=== PATIENT | male | born 1975 | race African-American/Black ===

== ENCOUNTER 2019-11-15 19:47 | Inpatient (IN) ==
[2019-11-15] MEDS ORDERED: ENOXAPARIN 80 MG/0.8 ML SYRINGE SUBCUT ONE (22:30)
[2019-11-15] MEDS ORDERED: AZITHROMYCIN INJ 500 MG in SODIUM CHLORIDE 0.9% 250 ML IV SCH (22:30)
[2019-11-15 23:16] LABS: Calcium 8.7 MG/DL (8.5-10.1)
[2019-11-15] MEDS ORDERED: NICOTINE 21 MG/24 HR PATCH TRANSDERM PRN (23:27)
[2019-11-15] MEDS ORDERED: MORPHINE 4 MG/1 ML VIAL IV PRN (23:27)
[2019-11-15] MEDS ORDERED: GLUCAGON 1 MG VIAL IM PRN (23:27)
[2019-11-15] MEDS ORDERED: ONDANSETRON 4 MG/2 ML VIAL IV PRN (23:27)
[2019-11-15] MEDS ORDERED: ZALEPLON 5 MG CAPSULE PO PRN (23:27)
[2019-11-15] MEDS ORDERED: DOCUSATE SODIUM 100 MG CAPSULE PO PRN (23:27)
[2019-11-15] MEDS ORDERED: DEXTROSE 50% 25 GM/50 ML VIAL IV PRN (23:27)
[2019-11-15 23:38] LABS: Basophils % 0.1 % (0.0-0.8); Eosinophils # 0.1 10*3/uL (0.0-0.87); Eosinophils % 1.5 % (0.00-10.9); Hematocrit 37.7 VOL% (42.0-52.0); Hemoglobin 12.2 GM/DL (14.0-18.0); Immature Granulocytes % 1.7 %; Immature Granulocytes Absolute 0.12 #; Lymphocytes # 0.8 10*3/uL (1.4-4.0); Mean Corpuscular HGB Conc 32.4 GM/DL (32-36); Mean Corpuscular Volume 85.5 FL (87-102); Mean Platelet Volume 9.7 FL (9.6-12.0); Monocytes % 5.1 % (1.7-12.7); Neutrophils % 80.6 % (38.7-73.9); Platelet Count 231 T/CUMM (130-400); Red Blood Count 4.41 MC/CUMM (3.8-5.5); Red Cell Distribution Width 13.2 % (9.3-17.3); White Blood Count 7.2 T/CUMM (4-12)
[2019-11-16] MEDS: cefTRIAXone 1,000 MG in SYRINGE 1 EACH IV SCH (00:06)
[2019-11-16] MEDS: diphenhydrAMINE CAP 25 MG CAPSULE PO PRN ×2 (00:07→20:30)
[2019-11-16] MEDS: POTASSIUM CHLORIDE 20 MEQ TABLET PO PRN ×5 (00:07→10:20)
[2019-11-16] MEDS: guaiFENesin/DM ER 600-30 MG TABLET PO PRN ×2 (00:07→20:30)
[2019-11-16] MEDS: ACETAMINOPHEN 325 MG TABLET PO PRN ×3 (00:07→20:30)
[2019-11-16 05:36] LABS: Basophils % 0.3 % (0.0-0.8); Eosinophils # 0.2 10*3/uL (0.0-0.87); Hematocrit 37.9 VOL% (42.0-52.0); Hemoglobin 12.4 GM/DL (14.0-18.0); Immature Granulocytes % 1.8 %; Immature Granulocytes Absolute 0.13 #; Lymphocytes # 0.7 10*3/uL (1.4-4.0); Lymphocytes % 9.2 % (21.2-54.2); Mean Corpuscular HGB Conc 32.7 GM/DL (32-36); Mean Corpuscular Volume 83.7 FL (87-102); Mean Platelet Volume 10.1 FL (9.6-12.0); Monocytes % 4.6 % (1.7-12.7); Neutrophils % 81.1 % (38.7-73.9); Platelet Count 229 T/CUMM (130-400); Red Blood Count 4.53 MC/CUMM (3.8-5.5); Red Cell Distribution Width 13.3 % (9.3-17.3); White Blood Count 7.4 T/CUMM (4-12)
[2019-11-16] MEDS ORDERED: POTASSIUM CHLORIDE 20 MEQ TABLET PO ONE (05:40)
[2019-11-16 06:04] LABS: Eosinophils 3 % (0-10); Hypochromasia 1+; Lymphocytes 7 % (20-55); Platelet Estimate Adequate; Segmented Neutrophils 89 % (50-85); Total Cells Counted 100
[2019-11-16] MEDS: hydrALAZINE 20 MG/1 ML VIAL IV PRN ×2 (06:06→08:05)
[2019-11-16 06:23] LABS: Calcium 8.7 MG/DL (8.5-10.1); Osmolality,Calculated 271.8 MOS/KG (273-304); Thyroid Stimulating Hormone 3.03 uIU/ml (0.358-3.74)
[2019-11-16] MEDS: POTASSIUM CHLORIDE INJ 40 MEQ in SODIUM CHLORIDE 0.45% 1,000 ML IV SCH ×2 (06:28→16:08)
[2019-11-16] MEDS: LEVOTHYROXINE 75 MCG TABLET PO SCH (06:28)
[2019-11-16 06:45] LABS: Ferritin 584.1 ng/ml (26-388)
[2019-11-16] MEDS: CITALOPRAM 20 MG TABLET PO SCH (08:02)
[2019-11-16] MEDS: AZITHROMYCIN 250 MG TABLET PO SCH (08:04)
[2019-11-16] MEDS: OLANZapine 5 MG TABLET PO SCH (08:04)
[2019-11-16] MEDS: CHOLECALCIFEROL 5,000 UNIT TABLET PO SCH (08:04)
[2019-11-16] MEDS ORDERED: PANTOPRAZOLE 40 MG TABLET PO SCH (09:00)
[2019-11-16] MEDS: levETIRAcetam 500 MG TABLET PO SCH ×2 (10:19→20:30)
[2019-11-16] MEDS: ENOXAPARIN 40 MG/0.4 ML SYRINGE SUBCUT SCH ×2 (10:19→20:30)
[2019-11-16] MEDS ORDERED: amLODIPine 5 MG TABLET PO SCH (11:00)
[2019-11-16] MEDS ORDERED: BENZONATATE 100 MG CAPSULE PO PRN (15:09)
[2019-11-16] MEDS: SIMVASTATIN 20 MG TABLET PO SCH (20:30)
[2019-11-16] MEDS: FAMOTIDINE 20 MG TABLET PO SCH (20:30)
[2019-11-17] MEDS: POTASSIUM CHLORIDE INJ 40 MEQ in SODIUM CHLORIDE 0.45% 1,000 ML IV SCH ×2 (01:04→12:52)
[2019-11-17] MEDS: hydrALAZINE 20 MG/1 ML VIAL IV PRN (04:32)
[2019-11-17] MEDS: ACETAMINOPHEN 325 MG TABLET PO PRN ×3 (04:33→20:36)
[2019-11-17 05:21] LABS: Basophils % 0.2 % (0.0-0.8); Eosinophils # 0.2 10*3/uL (0.0-0.87); Eosinophils % 2.5 % (0.00-10.9); Hemoglobin 11.8 GM/DL (14.0-18.0); Immature Granulocytes % 2.9 %; Immature Granulocytes Absolute 0.24 #; Lymphocytes # 0.6 10*3/uL (1.4-4.0); Lymphocytes % 6.6 % (21.2-54.2); Mean Corpuscular HGB Conc 32.8 GM/DL (32-36); Mean Corpuscular Volume 84.5 FL (87-102); Mean Platelet Volume 10.3 FL (9.6-12.0); Monocytes % 6.1 % (1.7-12.7); Neutrophils % 81.7 % (38.7-73.9); Platelet Count 214 T/CUMM (130-400); Red Blood Count 4.26 MC/CUMM (3.8-5.5); Red Cell Distribution Width 13.5 % (9.3-17.3); White Blood Count 8.4 T/CUMM (4-12)
[2019-11-17 05:42] LABS: Ferritin 586.5 ng/ml (26-388)
[2019-11-17] MEDS: LEVOTHYROXINE 75 MCG TABLET PO SCH (05:48)
[2019-11-17 05:52] LABS: Calcium 8.1 MG/DL (8.5-10.1); Osmolality,Calculated 270.8 MOS/KG (273-304)
[2019-11-17 06:13] LABS: Band Neutrophils 1 % (0-10); Eosinophils 1 % (0-10); Giant Platelets Few; Lymphocytes 7 % (20-55); Ovalocytes Few; Platelet Estimate Normal; Segmented Neutrophils 83 % (50-85); Total Cells Counted 100
[2019-11-17] MEDS: OLANZapine 5 MG TABLET PO SCH (10:07)
[2019-11-17] MEDS: FAMOTIDINE 20 MG TABLET PO SCH ×2 (10:08→20:36)
[2019-11-17] MEDS: CITALOPRAM 20 MG TABLET PO SCH (10:09)
[2019-11-17] MEDS: levETIRAcetam 500 MG TABLET PO SCH ×2 (10:10→20:35)
[2019-11-17] MEDS: amLODIPine 10 MG TABLET PO SCH (10:11)
[2019-11-17] MEDS: AZITHROMYCIN 250 MG TABLET PO SCH (10:11)
[2019-11-17] MEDS: CHOLECALCIFEROL 5,000 UNIT TABLET PO SCH (10:11)
[2019-11-17] MEDS: cefTRIAXone 1,000 MG in SYRINGE 1 EACH IV SCH (10:12)
[2019-11-17] MEDS: ENOXAPARIN 40 MG/0.4 ML SYRINGE SUBCUT SCH ×2 (10:15→20:36)
[2019-11-17] MEDS ORDERED: FUROSEMIDE 40 MG/4 ML VIAL IV ONE (11:24)
[2019-11-17] MEDS: POLYETHYLENE GLYCOL POWDER 17 GM PACK PO SCH (16:55)
[2019-11-17] MEDS: SIMVASTATIN 20 MG TABLET PO SCH (20:35)
[2019-11-17] MEDS: TAMSULOSIN 0.4 MG CAPSULE PO SCH (20:36)
[2019-11-18 05:36] LABS: Basophils % 0.4 % (0.0-0.8); Eosinophils # 0.2 10*3/uL (0.0-0.87); Eosinophils % 1.3 % (0.00-10.9); Hematocrit 36.8 VOL% (42.0-52.0); Immature Granulocytes % 3.2 %; Immature Granulocytes Absolute 0.36 #; Lymphocytes % 8.5 % (21.2-54.2); Mean Corpuscular HGB Conc 32.6 GM/DL (32-36); Mean Platelet Volume 10.4 FL (9.6-12.0); Monocytes % 5.5 % (1.7-12.7); Neutrophils % 81.1 % (38.7-73.9); Platelet Count 237 T/CUMM (130-400); Red Blood Count 4.38 MC/CUMM (3.8-5.5); Red Cell Distribution Width 13.7 % (9.3-17.3); White Blood Count 11.3 T/CUMM (4-12)
[2019-11-18 06:13] LABS: Ferritin 624.8 ng/ml (26-388)
[2019-11-18 06:21] LABS: Eosinophils 1 % (0-10); Hypochromasia 1+; Lymphocytes 6 % (20-55); Myelocytes 1 %; Segmented Neutrophils 88 % (50-85); Total Cells Counted 100
[2019-11-18 06:22] LABS: Microcytosis Slight; Ovalocytes Slight; Platelet Estimate Normal
[2019-11-18] MEDS: LEVOTHYROXINE 75 MCG TABLET PO SCH (06:43)
[2019-11-18 06:53] LABS: Calcium 8.7 MG/DL (8.5-10.1); Osmolality,Calculated 279.3 MOS/KG (273-304)
[2019-11-18] MEDS: AZITHROMYCIN 250 MG TABLET PO SCH (08:18)
[2019-11-18] MEDS: ENOXAPARIN 40 MG/0.4 ML SYRINGE SUBCUT SCH ×2 (08:18→20:17)
[2019-11-18] MEDS: OLANZapine 5 MG TABLET PO SCH (08:18)
[2019-11-18] MEDS: levETIRAcetam 500 MG TABLET PO SCH ×2 (08:18→20:17)
[2019-11-18] MEDS: CHOLECALCIFEROL 5,000 UNIT TABLET PO SCH (08:19)
[2019-11-18] MEDS: amLODIPine 10 MG TABLET PO SCH (08:19)
[2019-11-18] MEDS: CITALOPRAM 20 MG TABLET PO SCH (08:19)
[2019-11-18] MEDS: FAMOTIDINE 20 MG TABLET PO SCH ×2 (08:19→20:17)
[2019-11-18] MEDS: cefTRIAXone 1,000 MG in SYRINGE 1 EACH IV SCH (08:19)
[2019-11-18] MEDS: FINASTERIDE 5 MG TABLET PO SCH (08:19)
[2019-11-18] MEDS: POLYETHYLENE GLYCOL POWDER 17 GM PACK PO SCH (08:19)
[2019-11-18 08:53] LABS: ABG Base Excess 3.6 MMOL/L (-2.5-2.5); ABG HCO3 26.7 MMOL/L (20-26); ABG Oxygen Saturation 93.3 % (95-100); ABG PCO2 35.4 MM HG (35-48); ABG PH 7.495 (7.35-7.45); ABG PO2 64.7 MM HG (80-95); ABG TCO2 27.8 MMOL/L (23-27)
[2019-11-18] MEDS: POTASSIUM CHLORIDE INJ 40 MEQ in SODIUM CHLORIDE 0.45% 1,000 ML IV SCH (15:03)
[2019-11-18] MEDS: SIMVASTATIN 20 MG TABLET PO SCH (20:17)
[2019-11-18] MEDS: TAMSULOSIN 0.4 MG CAPSULE PO SCH (20:17)
[2019-11-19] MEDS: LEVOTHYROXINE 75 MCG TABLET PO SCH (05:32)
[2019-11-19] MEDS: POTASSIUM CHLORIDE INJ 40 MEQ in SODIUM CHLORIDE 0.45% 1,000 ML IV SCH (05:32)
[2019-11-19 05:35] LABS: Basophils % 0.4 % (0.0-0.8); Eosinophils # 0.2 10*3/uL (0.0-0.87); Eosinophils % 1.8 % (0.00-10.9); Hematocrit 34.6 VOL% (42.0-52.0); Hemoglobin 10.8 GM/DL (14.0-18.0); Immature Granulocytes % 1.7 %; Immature Granulocytes Absolute 0.16 #; Lymphocytes # 0.9 10*3/uL (1.4-4.0); Lymphocytes % 9.5 % (21.2-54.2); Mean Corpuscular HGB Conc 31.2 GM/DL (32-36); Monocytes % 7.3 % (1.7-12.7); Neutrophils % 79.3 % (38.7-73.9); Platelet Count 268 T/CUMM (130-400); Red Blood Count 3.93 MC/CUMM (3.8-5.5); Red Cell Distribution Width 13.9 % (9.3-17.3); White Blood Count 9.5 T/CUMM (4-12)
[2019-11-19 05:49] LABS: Calcium 8.1 MG/DL (8.5-10.1); Osmolality,Calculated 275.5 MOS/KG (273-304)
[2019-11-19 06:10] LABS: Ferritin 732.9 ng/ml (26-388)
[2019-11-19 06:40] LABS: Alanine Aminotransferase 438 U/L (16-61); Alkaline Phosphatase 271 U/L (45-117); Aspartate Amino Transferase 164 U/L (0-37)
[2019-11-19] MEDS: POLYETHYLENE GLYCOL POWDER 17 GM PACK PO SCH (08:15)
[2019-11-19] MEDS: cefTRIAXone 1,000 MG in SYRINGE 1 EACH IV SCH (08:15)
[2019-11-19] MEDS: OLANZapine 5 MG TABLET PO SCH (08:15)
[2019-11-19] MEDS: FINASTERIDE 5 MG TABLET PO SCH (08:15)
[2019-11-19] MEDS: ENOXAPARIN 40 MG/0.4 ML SYRINGE SUBCUT SCH ×2 (08:15→20:45)
[2019-11-19] MEDS: AZITHROMYCIN 250 MG TABLET PO SCH (08:16)
[2019-11-19] MEDS: CHOLECALCIFEROL 5,000 UNIT TABLET PO SCH (08:16)
[2019-11-19] MEDS: CITALOPRAM 20 MG TABLET PO SCH (08:16)
[2019-11-19] MEDS: amLODIPine 10 MG TABLET PO SCH (08:16)
[2019-11-19] MEDS: levETIRAcetam 500 MG TABLET PO SCH ×2 (08:16→20:45)
[2019-11-19] MEDS: FAMOTIDINE 20 MG TABLET PO SCH ×2 (08:16→20:45)
[2019-11-19] MEDS: SIMVASTATIN 20 MG TABLET PO SCH (20:45)
[2019-11-19] MEDS: TAMSULOSIN 0.4 MG CAPSULE PO SCH (20:45)
[2019-11-20 05:39] LABS: Basophils % 0.3 % (0.0-0.8); Eosinophils # 0.2 10*3/uL (0.0-0.87); Eosinophils % 1.6 % (0.00-10.9); Hematocrit 35.8 VOL% (42.0-52.0); Hemoglobin 11.3 GM/DL (14.0-18.0); Immature Granulocytes % 1.5 %; Immature Granulocytes Absolute 0.14 #; Lymphocytes # 0.8 10*3/uL (1.4-4.0); Mean Corpuscular HGB Conc 31.6 GM/DL (32-36); Mean Corpuscular Volume 85.9 FL (87-102); Mean Platelet Volume 9.9 FL (9.6-12.0); Monocytes % 6.8 % (1.7-12.7); Neutrophils % 81.8 % (38.7-73.9); Platelet Count 308 T/CUMM (130-400); Red Blood Count 4.17 MC/CUMM (3.8-5.5); Red Cell Distribution Width 14.1 % (9.3-17.3); White Blood Count 9.5 T/CUMM (4-12)
[2019-11-20 06:00] LABS: Calcium 8.8 MG/DL (8.5-10.1)
[2019-11-20 06:06] LABS: Albumin 2.3 G/DL (3.4-5.0); Bilirubin,Direct 0.14 MG/DL (0.0-0.20); Bilirubin,Indirect 0.9 MG/DL (0.0-1.0); Total Protein 7.4 G/DL (6.4-8.3)
[2019-11-20] MEDS: LEVOTHYROXINE 75 MCG TABLET PO SCH (06:08)
[2019-11-20 06:35] LABS: Ferritin 750.1 ng/ml (26-388)
[2019-11-20] MEDS: POTASSIUM CHLORIDE INJ 40 MEQ in SODIUM CHLORIDE 0.45% 1,000 ML IV SCH (08:18)
[2019-11-20] MEDS: OLANZapine 5 MG TABLET PO SCH (08:21)
[2019-11-20] MEDS: FINASTERIDE 5 MG TABLET PO SCH (08:21)
[2019-11-20] MEDS: AZITHROMYCIN 250 MG TABLET PO SCH (08:21)
[2019-11-20] MEDS: cefTRIAXone 1,000 MG in SYRINGE 1 EACH IV SCH (08:22)
[2019-11-20] MEDS: FAMOTIDINE 20 MG TABLET PO SCH ×2 (08:22→21:31)
[2019-11-20] MEDS: CITALOPRAM 20 MG TABLET PO SCH (08:22)
[2019-11-20] MEDS: levETIRAcetam 500 MG TABLET PO SCH ×2 (08:22→21:30)
[2019-11-20] MEDS: CHOLECALCIFEROL 5,000 UNIT TABLET PO SCH (08:22)
[2019-11-20] MEDS: ENOXAPARIN 40 MG/0.4 ML SYRINGE SUBCUT SCH ×2 (08:23→21:30)
[2019-11-20] MEDS: POLYETHYLENE GLYCOL POWDER 17 GM PACK PO SCH (08:23)
[2019-11-20] MEDS: amLODIPine 10 MG TABLET PO SCH (10:55)
[2019-11-20] MEDS ORDERED: REMDESIVIR 200 MG in SODIUM CHLORIDE 0.9% 210 ML IV ONE (15:00)
[2019-11-20] MEDS: TAMSULOSIN 0.4 MG CAPSULE PO SCH (21:30)
[2019-11-20] MEDS: ACETAMINOPHEN 325 MG TABLET PO PRN (21:31)
[2019-11-20] MEDS: SIMVASTATIN 20 MG TABLET PO SCH (21:31)
[2019-11-21 05:48] LABS: Basophils % 0.4 % (0.0-0.8); Eosinophils # 0.2 10*3/uL (0.0-0.87); Eosinophils % 1.8 % (0.00-10.9); Hematocrit 38.5 VOL% (42.0-52.0); Hemoglobin 12.1 GM/DL (14.0-18.0); Immature Granulocytes % 1.7 %; Immature Granulocytes Absolute 0.14 #; Lymphocytes # 0.8 10*3/uL (1.4-4.0); Lymphocytes % 9.1 % (21.2-54.2); Mean Corpuscular HGB Conc 31.4 GM/DL (32-36); Mean Corpuscular Volume 87.7 FL (87-102); Mean Platelet Volume 9.8 FL (9.6-12.0); Monocytes % 8.9 % (1.7-12.7); Neutrophils % 78.1 % (38.7-73.9); Platelet Count 354 T/CUMM (130-400); Red Blood Count 4.39 MC/CUMM (3.8-5.5); Red Cell Distribution Width 14.1 % (9.3-17.3); White Blood Count 8.2 T/CUMM (4-12)
[2019-11-21 06:00] LABS: Calcium 8.9 MG/DL (8.5-10.1); Osmolality,Calculated 274.7 MOS/KG (273-304)
[2019-11-21 06:07] LABS: Albumin 2.5 G/DL (3.4-5.0); Bilirubin,Direct 0.14 MG/DL (0.0-0.20); Bilirubin,Indirect 0.4 MG/DL (0.0-1.0); Bilirubin,Total 0.5 MG/DL (0.2-1.0); Total Protein 7.2 G/DL (6.4-8.3)
[2019-11-21] MEDS: LEVOTHYROXINE 75 MCG TABLET PO SCH (06:10)
[2019-11-21 06:24] LABS: Ferritin 779.6 ng/ml (26-388)
[2019-11-21] MEDS: POTASSIUM CHLORIDE INJ 40 MEQ in SODIUM CHLORIDE 0.45% 1,000 ML IV SCH (09:03)
[2019-11-21] MEDS: POLYETHYLENE GLYCOL POWDER 17 GM PACK PO SCH (09:06)
[2019-11-21] MEDS: FAMOTIDINE 20 MG TABLET PO SCH ×2 (09:07→21:29)
[2019-11-21] MEDS: FINASTERIDE 5 MG TABLET PO SCH (09:07)
[2019-11-21] MEDS: CITALOPRAM 20 MG TABLET PO SCH (09:07)
[2019-11-21] MEDS: amLODIPine 10 MG TABLET PO SCH (09:07)
[2019-11-21] MEDS: OLANZapine 5 MG TABLET PO SCH (09:07)
[2019-11-21] MEDS: CHOLECALCIFEROL 5,000 UNIT TABLET PO SCH (09:08)
[2019-11-21] MEDS: levETIRAcetam 500 MG TABLET PO SCH ×2 (09:08→21:30)
[2019-11-21] MEDS: cefTRIAXone 1,000 MG in SYRINGE 1 EACH IV SCH (09:08)
[2019-11-21] MEDS: ENOXAPARIN 40 MG/0.4 ML SYRINGE SUBCUT SCH ×2 (09:08→21:30)
[2019-11-21] MEDS: REMDESIVIR 100 MG in SODIUM CHLORIDE 0.9% 230 ML IV SCH (15:04)
[2019-11-21] MEDS: SIMVASTATIN 20 MG TABLET PO SCH (21:30)
[2019-11-21] MEDS: TAMSULOSIN 0.4 MG CAPSULE PO SCH (21:37)
[2019-11-22 06:40] LABS: Ferritin 702.9 ng/ml (26-388)
[2019-11-22] MEDS: LEVOTHYROXINE 75 MCG TABLET PO SCH (06:41)
[2019-11-22 07:07] LABS: Albumin 2.6 G/DL (3.4-5.0); Bilirubin,Direct 0.11 MG/DL (0.0-0.20); Bilirubin,Indirect 0.3 MG/DL (0.0-1.0); Bilirubin,Total 0.4 MG/DL (0.2-1.0); Total Protein 7.7 G/DL (6.4-8.3)
[2019-11-22] MEDS: FAMOTIDINE 20 MG TABLET PO SCH ×2 (08:00→20:41)
[2019-11-22] MEDS: POLYETHYLENE GLYCOL POWDER 17 GM PACK PO SCH (08:00)
[2019-11-22] MEDS: levETIRAcetam 500 MG TABLET PO SCH ×2 (08:00→20:41)
[2019-11-22] MEDS: FINASTERIDE 5 MG TABLET PO SCH (08:00)
[2019-11-22] MEDS: OLANZapine 5 MG TABLET PO SCH (08:01)
[2019-11-22] MEDS: CHOLECALCIFEROL 5,000 UNIT TABLET PO SCH (08:02)
[2019-11-22] MEDS: CITALOPRAM 20 MG TABLET PO SCH (08:02)
[2019-11-22] MEDS: amLODIPine 10 MG TABLET PO SCH (08:02)
[2019-11-22] MEDS: cefTRIAXone 1,000 MG in SYRINGE 1 EACH IV SCH (08:02)
[2019-11-22] MEDS: ENOXAPARIN 40 MG/0.4 ML SYRINGE SUBCUT SCH ×2 (08:03→20:41)
[2019-11-22] MEDS: POTASSIUM CHLORIDE INJ 40 MEQ in SODIUM CHLORIDE 0.45% 1,000 ML IV SCH (13:59)
[2019-11-22] MEDS: REMDESIVIR 100 MG in SODIUM CHLORIDE 0.9% 230 ML IV SCH (14:39)
[2019-11-22] MEDS: TAMSULOSIN 0.4 MG CAPSULE PO SCH (20:39)
[2019-11-22] MEDS: SIMVASTATIN 20 MG TABLET PO SCH (20:41)
[2019-11-23 05:16] LABS: Basophils % 0.5 % (0.0-0.8); Eosinophils # 0.2 10*3/uL (0.0-0.87); Eosinophils % 2.4 % (0.00-10.9); Hematocrit 39.5 VOL% (42.0-52.0); Immature Granulocytes % 1.6 %; Immature Granulocytes Absolute 0.12 #; Lymphocytes % 12.9 % (21.2-54.2); Mean Corpuscular HGB Conc 30.4 GM/DL (32-36); Mean Corpuscular Volume 89.2 FL (87-102); Mean Platelet Volume 9.6 FL (9.6-12.0); Monocytes % 12.7 % (1.7-12.7); Neutrophils % 69.9 % (38.7-73.9); Platelet Count 423 T/CUMM (130-400); Red Blood Count 4.43 MC/CUMM (3.8-5.5); Red Cell Distribution Width 14.2 % (9.3-17.3); White Blood Count 7.6 T/CUMM (4-12)
[2019-11-23 05:47] LABS: Calcium 9.1 MG/DL (8.5-10.1); Osmolality,Calculated 267.2 MOS/KG (273-304)
[2019-11-23 06:03] LABS: Albumin 2.7 G/DL (3.4-5.0); Bilirubin,Direct 0.12 MG/DL (0.0-0.20); Bilirubin,Indirect 0.4 MG/DL (0.0-1.0); Bilirubin,Total 0.5 MG/DL (0.2-1.0); Total Protein 7.5 G/DL (6.4-8.3)
[2019-11-23 06:09] LABS: Lymphocytes 14 % (20-55); Platelet Estimate Adequate; Segmented Neutrophils 76 % (50-85); Total Cells Counted 100
[2019-11-23 06:10] LABS: Hypochromasia 1+; Microcytosis 1+
[2019-11-23] MEDS: amLODIPine 10 MG TABLET PO SCH (08:14)
[2019-11-23] MEDS: CITALOPRAM 20 MG TABLET PO SCH (08:14)
[2019-11-23] MEDS: FAMOTIDINE 20 MG TABLET PO SCH ×2 (08:14→20:57)
[2019-11-23] MEDS: LEVOTHYROXINE 75 MCG TABLET PO SCH (08:14)
[2019-11-23] MEDS: levETIRAcetam 500 MG TABLET PO SCH ×2 (08:14→20:56)
[2019-11-23] MEDS: FINASTERIDE 5 MG TABLET PO SCH (08:15)
[2019-11-23] MEDS: CHOLECALCIFEROL 5,000 UNIT TABLET PO SCH (08:15)
[2019-11-23] MEDS: POLYETHYLENE GLYCOL POWDER 17 GM PACK PO SCH (08:15)
[2019-11-23] MEDS: ENOXAPARIN 40 MG/0.4 ML SYRINGE SUBCUT SCH ×2 (08:16→20:57)
[2019-11-23] MEDS: SODIUM CHLORIDE 0.45% 1,000 ML IV SCH (08:17)
[2019-11-23] MEDS: OLANZapine 5 MG TABLET PO SCH (09:58)
[2019-11-23] MEDS: REMDESIVIR 100 MG in SODIUM CHLORIDE 0.9% 230 ML IV SCH (15:49)
[2019-11-23] MEDS: TAMSULOSIN 0.4 MG CAPSULE PO SCH (20:56)
[2019-11-23] MEDS: SIMVASTATIN 20 MG TABLET PO SCH (20:57)
[2019-11-24 05:51] LABS: Basophils % 0.4 % (0.0-0.8); Eosinophils # 0.2 10*3/uL (0.0-0.87); Eosinophils % 2.6 % (0.00-10.9); Hematocrit 37.9 VOL% (42.0-52.0); Hemoglobin 11.8 GM/DL (14.0-18.0); Immature Granulocytes % 1.5 %; Lymphocytes # 0.9 10*3/uL (1.4-4.0); Lymphocytes % 13.4 % (21.2-54.2); Mean Corpuscular HGB Conc 31.1 GM/DL (32-36); Mean Corpuscular Volume 87.9 FL (87-102); Mean Platelet Volume 9.7 FL (9.6-12.0); Monocytes % 11.8 % (1.7-12.7); Neutrophils % 70.3 % (38.7-73.9); Platelet Count 419 T/CUMM (130-400); Red Blood Count 4.31 MC/CUMM (3.8-5.5); Red Cell Distribution Width 14.1 % (9.3-17.3); White Blood Count 6.9 T/CUMM (4-12)
[2019-11-24 06:14] LABS: Calcium 8.9 MG/DL (8.5-10.1); Osmolality,Calculated 267.2 MOS/KG (273-304)
[2019-11-24 06:17] LABS: Albumin 2.6 G/DL (3.4-5.0); Bilirubin,Direct 0.12 MG/DL (0.0-0.20); Bilirubin,Indirect 0.3 MG/DL (0.0-1.0); Bilirubin,Total 0.4 MG/DL (0.2-1.0); Total Protein 8.1 G/DL (6.4-8.3)
[2019-11-24] MEDS: LEVOTHYROXINE 75 MCG TABLET PO SCH (06:26)
[2019-11-24] MEDS: amLODIPine 10 MG TABLET PO SCH (08:18)
[2019-11-24] MEDS: CITALOPRAM 20 MG TABLET PO SCH (08:18)
[2019-11-24] MEDS: FAMOTIDINE 20 MG TABLET PO SCH (08:18)
[2019-11-24] MEDS: OLANZapine 5 MG TABLET PO SCH (08:18)
[2019-11-24] MEDS: CHOLECALCIFEROL 5,000 UNIT TABLET PO SCH (08:19)
[2019-11-24] MEDS: levETIRAcetam 500 MG TABLET PO SCH (08:19)
[2019-11-24] MEDS: POLYETHYLENE GLYCOL POWDER 17 GM PACK PO SCH (08:19)
[2019-11-24] MEDS: FINASTERIDE 5 MG TABLET PO SCH (08:19)
[2019-11-24] MEDS: ENOXAPARIN 40 MG/0.4 ML SYRINGE SUBCUT SCH (08:19)
[2019-11-24] MEDS: REMDESIVIR 100 MG in SODIUM CHLORIDE 0.9% 230 ML IV SCH (10:36)
[2019-11-24 12:01] VITALS: BP 147/91
[2019-11-24] MEDS: SODIUM CHLORIDE 0.45% 1,000 ML IV SCH (13:41)
== END 2019-11-24 14:52 | disposition home or self-care (01) | DRG 137 ==
LOC: SUPCPDRO 21:56 → SUATTDRO 21:56 → N.2E 21:56
PROVIDERS: ADMIT Internal Medicine; ATTEND Internal Medicine